=== PATIENT | male | born 1975 | race Hispanic/Latino ===

== ENCOUNTER 2018-05-27 00:53 | Emergency (ER) | payer OTHER ==
[2018-05-27 01:21] LABS: #Eosinphils 0.1 thou/uL (0.0-0.7); #Lymphocytes 1.8 thou/uL (1.20-3.40); #Monocytes 1.4 thou/uL (0.11-0.59); #Neutrophils 15.2 thou/uL (1.40-6.50); %Basophils 0.1 % (0.0-1.0); %Eosinophils 0.8 % (0.0-10.0); %Lymphocytes 9.8 % (21.0-51.0); %Monocytes 7.3 % (0.0-10.0); Hemoglobin 16.6 g/dL (14.0-18.0); Mean Corpuscular HGB CONC 33.7 g/dL (32.0-36.0); Mean Corpuscular Hemoglobin 27.8 pg (27.0-31.0); Mean Corpuscular Volume 82.4 fL (78.0-98.0); Mean Platelet Volume 7.6 fL (7.4-10.4); Platelet Count 233 thou/uL (130-400); RBC Distribution Width 12.8 % (11.5-14.5); Red Blood Cell (RBC) Count 5.97 mill/uL (4.70-6.10); White Blood Cell (WBC) Count 18.5 thou/uL (4.8-10.8)
[2018-05-27] MEDS ORDERED: Morphine 4 MG/ML VIAL ONE (01:24)
[2018-05-27] MEDS ORDERED: Ondansetron PF 4 MG/2 ML Vial ONE (01:24)
[2018-05-27 01:42] LABS: ALT (SGPT) 47 U/L (8-55); AST (SGOT) 49 U/L (5-34); Albumin 4.3 g/dL (3.5-5.0); Alkaline Phosphatase 81 U/L (40-150); Anion Gap 19 mmol/L (10-20); BUN (Urea Nitrogen) 11 mg/dL (8.9-20.6); Bilirubin, Total 0.5 mg/dL (0.2-1.2); Calc. Creatinine Clearance 0 mL/min (70-130); Calcium 8.9 mg/dL (7.8-10.44); Carbon Dioxide 21 mmol/L (22-29); Chloride 101 mmol/L (98-107); Estimated GFR-MDRD Greater than 90; Globulin 3.8 g/dL (2.4-3.5); Glucose 137 mg/dL (70-105); Potassium 3.5 mmol/L (3.5-5.1); Protein, Total 8.1 g/dL (6.0-8.3); Sodium 137 mmol/L (136-145)
--- NOTE | 2018-05-27 07:37 | RAD ---
XR Humerus Lt 2 View STANDARD History: [Fall] Comparison: None. Findings: The humerus is intact. No fracture. Impression: Intact humerus
--- NOTE | 2018-05-27 07:46 | CT ---
PRELIMINARY REPORT CT Chest With Contrast EXAM DATE/TIME: 05/27/2018 1:17 AM CLINICAL HISTORY: 42 years old, male; Injury or trauma; Fall; Initial encounter; Abrasion; Patient HX: M42 presents to ed with C/O fall from trailer approx. 15ft high onset 1hr ago while at work. PT denies hitting his head or loc, reports landing on his left side and attempting to catch himself with his left arm. PT reports l eft shoulder, left back, and left hip pain. TECHNIQUE: Imaging protocol: Axial computed tomography images of the chest with intravenous contrast. Coronal and sagittal reformatted images were created and reviewed. COMPARISON: No relevant prior studies available. FINDINGS: Lungs: Indeterminate 3 mm right middle lobe pulmonary nodule. Lungs is clear. Pleural space: No pneumothorax or hemothorax. Heart: Normal. No cardiomegaly. No pericardial effusion. Aorta: No traumatic aortic injury. No mediastinal hematoma, pneumomediastinum, or hemopericardium. Lymph nodes: Unremarkable. No enlarged lymph nodes. Bones/joints: Unremarkable. No acute fracture. Soft tissues: Unremarkable. Other findings: No pulmonary contusion. IMPRESSION: No acute traumatic injury. CT Abdomen and Pelvis With Contrast TECHNIQUE: Imaging protocol: Axial computed tomography images of the abdomen and pelvis with intravenous contrast. Coronal and sagittal reformatted images were created and reviewed. COMPARISON: No relevant prior studies available. FINDINGS: Lower thorax: No acute findings. ABDOMEN: Liver: Normal. No mass. Gallbladder and bile ducts: Normal. No calcified stones. No ductal dilation. Pancreas: Normal. No ductal dilation. Spleen: Normal. No splenomegaly. Adrenals: Normal. No mass. Kidneys and ureters: Normal horseshoe kidney. Stomach and bowel: No bowel wall thickening or intestinal obstruction. Appendix: Normal appendix. PELVIS: Bladder: Unremarkable as visualized. Reproductive: Unremarkable as visualized. ABDOMEN and PELVIS: Intraperitoneal space: No hemoperitoneum, pneumoperitoneum, mesenteric/omental contusion, or retroperitoneal hematoma. Bones/joints: No acute fracture. No dislocation. Soft tissues: Unremarkable. Vasculature: Normal. No abdominal aortic aneurysm. Lymph nodes: Normal. No enlarged lymph nodes. Other findings: No traumatic organ injury. IMPRESSION: No acute traumatic injury. Thank you for allowing us to participate in the care of your patient. Dictated and Authenticated by: Rad Francois MD 05/27/2018 2:32 AM Central Time ([place] & [place]) FINAL REPORT: CT Chest Abd Pelvis W Con History: [Trauma. Fall.] Comparison: None. Findings: CT of the chest, abdomen, and pelvis performed after intravenous ministration of contrast. There is a 3 mm nodule right middle lobe. No pneumothorax. No effusion. No pulmonary contusion. There is a superior endplate fracture of T12 with approximately 10% anterior height loss. Fracture do es not extend into the posterior elements or the posterior margin of the vertebral body. The sternum and manubrium are intact. 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 No SI joint widening. Pubic symphysis is normal. No iliac wing fractur e. No fracture of the transverse processes. Incidental note is made of a horseshoe kidney. Bilateral gluteus subcutaneous soft tissue contusions. There are no dilated loops of large or small bowel. The appendix is visualized and is normal. The aortoiliac contour is normal. The spleen, pancreas, liver are without acute injury. No hematoma or contusion. The adrenal glands are normal. Impression: Acute superior endplate fracture of T12 with approximately 10% height loss. This is in di sagreement with the preliminary report. Code: QD The charge nurse in the emergency room was notified of findings via telephone at 7:43 AM. Transcribed Date/Time: 05/27/2018 8:41 AM
--- NOTE | 2018-05-27 07:47 | RAD ---
EXAM: Left wrist radiographs 3 views PROVIDED CLINICAL HISTORY: Left wrist pain status post injury COMPARISON: None FINDINGS: Comminuted intra-articular fracture involving the distal radial meta-epiphyseal region. Mild radial d isplacement of radial styloid fragment. No additional fracture is evident. Joint spaces appear preser edwar. IMPRESSION: Comminuted intra-articular distal radial fracture.
[2018-05-27] MEDS ORDERED: ISOVUE-370 76%-LOCM 1 ML ONE (13:40)
== END 2018-05-27 03:40 | disposition home or self-care (01) ==
LOC: ERS 00:53
DX: S52.572A Other intraarticular fracture of lower end of left radius, initial encounter for closed fracture (principal); S40.012A Contusion of left shoulder, initial encounter; S70.01XA Contusion of right hip, initial encounter; W17.89XA Other fall from one level to another, initial encounter
CPT/HCPCS: 29125; 71260; 74177; 80053; 85025; 96361; 96374; 96375; J2270; J2405; Q9966